=== PATIENT | male | born 2000 | race Caucasian/White ===

== ENCOUNTER 2021-05-07 14:40 | Emergency (ER) | payer OTHER ==
[~2021-05-07] VITALS: Ht 170.2 cm; Wt 86.2 kg
--- NOTE | 2021-05-07 15:27 | NUR ---
AARON TOBIAS AT BEDSIDE FOR EVAL.
[2021-05-07] MEDS ORDERED: NAPR-1009 PO (15:35)
--- NOTE | 2021-05-07 16:44 | NUR ---
PT SEEN AND EVALUATED. MEDICALLY CLEARED FOR BOOKING. PT DISCHARGE TO PD IN STABLE CONDITION.
[2021-05-07 18:25] VITALS: BP 146/60
== END 2021-05-07 18:26 ==
LOC: ER 15:03
DX: S63.501A Unspecified sprain of right wrist, initial encounter (principal); S93.601A Unspecified sprain of right foot, initial encounter; W22.8XXA Striking against or struck by other objects, initial encounter; Y93.02 Activity, running; Y92.89 Other specified places as the place of occurrence of the external cause; Y99.8 Other external cause status
CPT/HCPCS: 73110; 73630-TC

== ENCOUNTER 2021-05-10 16:23 | Emergency (ER) | payer OTHER ==
[~2021-05-10] VITALS: Ht 172.7 cm; Wt 86.2 kg
[2021-05-10] MEDS ORDERED: IV NS 0.9% 1,000 ML BAG IV ONE (16:30)
--- NOTE | 2021-05-10 16:48 | NUR ---
TO ER BED 14, [id number] FROM DETENTION FOR SYNCOPAL EPISODE, WITNESSED. BG 286, [employer] AT BEDSIDE, COOPERATIVE, AAOX3, BREATHING EVEN AND NON LABORED, AWAITING MD SOTO
[2021-05-10 16:53] LABS: BASOPHILS # (AUTO) 0.1 K/uL (0.0-0.2); BASOPHILS % (AUTO) 0.6 % (0.0-2.0); EOSINOPHILS % (AUTO) 1.8 % (0.0-6.0); HEMATOCRIT 47 % (39-51); HEMOGLOBIN 15.9 g/dL (13.5-17.5); LYMPHOCYTES # (AUTO) 2.4 K/uL (0.8-4.8); LYMPHOCYTES % (AUTO) 25.6 % (20.0-44.0); MEAN CORPUSCULAR HGB CONC 34 g/dl (31.0-36.0); MEAN CORPUSCULAR VOLUME 87 fL (80-96); MONOCYTES # (AUTO) 0.6 K/uL (0.1-1.30); MONOCYTES % (AUTO) 5.8 % (2.0-12.0); NEUTROPHILS # (AUTO) 6.3 K/uL (1.8-8.9); NEUTROPHILS % (AUTO) 66.2 % (43.0-81.0); PLATELET COUNT (AUTO) 298 K/uL (150-450); RED BLOOD CELL COUNT(AUTO) 5.44 MIL/uL (4.5-6.0); WHITE BLOOD COUNT (AUTO) 9.5 K/uL (4.3-11.0)
[2021-05-10 17:11] LABS: CREATININE 0.9 mg/dL (0.6-1.3); POTASSIUM 4.7 mmol/L (3.5-5.1)
[2021-05-10] MEDS ORDERED: NALO4SPR BNOSTRILS (18:47)
[2021-05-10 18:49] LABS: CALCIUM, SERUM 9.7 mg/dL (8.5-10.1)
--- NOTE | 2021-05-10 19:04 | NUR ---
IV removed. Catheter intact and site benign. Pressure and 4x4 applied to site. No bleeding noted.Patient discharged to home in stable condition. Written and verbal after care instructions given. Patient verbalizes understanding of instruction.
--- NOTE | 2021-05-10 19:05 | NUR ---
[facility] OFFICERS ARE WAITING FOR NEXT SHIFT TO RELIEVE THEM AND TAKE THE PATIENT, DC PAPER SIGNED
--- NOTE | 2021-05-10 19:50 | NUR ---
Patient discharged to home in stable condition. Written and verbal after care instructions given. Patient verbalizes understanding of instruction.
[2021-05-10 19:51] VITALS: BP 140/77
== END 2021-05-10 19:52 ==
LOC: ER 16:27
DX: R55 Syncope and collapse (principal); F41.1 Generalized anxiety disorder; E11.65 Type 2 diabetes mellitus with hyperglycemia; F19.10 Other psychoactive substance abuse, uncomplicated; Z79.1 Long term (current) use of non-steroidal anti-inflammatories (NSAID)
CPT/HCPCS: 36415; 71045; 80048; 82962; 85025; 93005; 96360; 99285; J7030